=== PATIENT | male | born 2005 | race Two or more races ===

== ENCOUNTER 2024-11-30 09:59 | Emergency (ER) | payer MEDICAID, SELFPAY ==
[2024-11-30 10:00] VITALS: BMI 21.8
--- NOTE | 2024-11-30 10:57 | PC.NURSE ---
CALL PT FROM LOBBY AND OUTSIDE NO ANSWER
--- NOTE | 2024-11-30 11:19 | PC.NURSE ---
called from lobby and no answer
--- NOTE | 2024-11-30 11:33 | PC.NURSE ---
called from lobby and no answer
== END 2024-11-30 11:33 | disposition left against medical advice (07) ==
LOC: SERX 11:35
PROVIDERS: Emergency Provider Emergency Medicine
DX: Z53.21 Procedure and treatment not carried out due to patient leaving prior to being seen by health care provider (principal)

== ENCOUNTER 2025-01-25 05:42 | Emergency (ER) | payer MEDICAID, SELFPAY ==
[2025-01-25] VITALS (16 sets, daily range): BP systolic 116–159; BP diastolic 72–97; PULSE 69–101; RESP 13–23; TEMP 36.6–37; O2SAT 96–100; BMI 20.5; BMI 19.9
--- NOTE | 2025-01-25 05:53 | PD.EDADULT ---
ED General RME/HPI General Chief complaint: Seizure Stated complaint: SEIZURE Time Seen by Provider: 01/25/25 05:53 Arrival date/time: 01/25/25 05:42 RME / HPI RME / HPI narrative: Patient is a 19 years old male with PMH of kidney stones with multiple ED visits, CKD, seizure disorder, asthma presented to the ED due to abdominal and B/L flank pain, hematuria and episode of seizures. He reports he developed hematuria 1 week ago and it was episodic. Today around 0400 he developed severe abdominal pain and his urine completely turned into blood. He reports because of pain he developed seizure episode around 0500 and EMS was called. He reports he has seizure disorder diagnosed when he was 6 years old and was previously on medications but discontinued them due to side effects. He had episode of seizures 1 week ago last time. He denies any drug use, alcohol use or tobacco smoking. He denies fever, chills, chest pain, SOB, nausea, vomiting, diarrhea. He reports he has seizure episodes usually when he has severe pain. Mother arrived later reports he stopped seizure medications 3 years ago. She reports he has absent seizures and tonic-clonic seizures when his right side of the body starts shaking and gaze deviates to the left. Today he first started staring at one point and became unresponsive and then started shaking. She reports he is not followed by nephrology, urology or neurology. No family history is available as the patient is adopted. During ED stay patient was found to have low 6 mm calculus in left urether and was set for discharge on PO Tamsulosin and immediately prior to it he said he will kill himself by stabbing himself once he reach his home. Psychiatric hold was ordered. Related Data Home Medications ?Medication ?Instructions ?Recorded ?Confirmed albuterol sulfate 2.5 mg/3 mL 2.5 mg HHN [id number] #0 ea 12/22/13 (0.083 %) solution for nebulization beclomethasone dipropionate 40 2 puff inhalation BID ##0 12/22/13 mcg/actuation aerosol inhaler (Qvar) calcium carbonate (Oyster Shell 1 tab PO DAILY ##0 12/22/13 Calcium) dexmethylphenidate 20 mg 20 mg PO DAILY ##0 12/22/13 capsule,extended release [id number] (Focalin XR) epinephrine 0.3 mg/0.3 mL 0.3 mg IM PRN PRN ANAPHYLAXIS #0 ea 12/22/13 injection, auto-injector (EpiPen 2-Lj) esomeprazole magnesium 40 mg 40 mg PO QDAY ##0 12/22/13 capsule,delayed release (Nexium) Previous Rx's ?Medication ?Instructions ?Recorded ciprofloxacin HCl 500 mg tablet 500 mg PO BID #14 tabs 09/13/24 (Cipro) ibuprofen 800 mg tablet 800 mg PO Q8H PRN pain #30 tabs 09/13/24 tamsulosin 0.4 mg capsule 0.4 mg PO QDAY 7 days #7 caps 01/25/25 Allergies Allergy/AdvReac Type Severity Reaction Status Date / Time adhesive Allergy Intermediate Rash Verified 11/30/24 10:02 amphetamine Allergy Intermediate SWELLS, Verified 11/30/24 10:02 RASH dextroamphetamine Allergy Intermediate SWELLS, Verified 11/30/24 10:02 RASH Penicillins Allergy Mild RASH Verified 11/30/24 10:02 ceftriaxone Allergy Unknown Hives Verified 11/30/24 10:02 corn AdvReac Mild NAUSEA Verified 11/30/24 10:02 Review of Systems Review of Systems Systems Reviewed: All systems reviewed, normal except as documented ED Exam Narrative Physical exam: Gen: Well-developed and well-nourished male. HEENT: NCAT, PERRLA, EOMI, MMM, anicteric conjunctivae. CVS: normal S1 and S2. RRR. No M/R/G. Resp: CTA B/L. No rhonchi, rales, crackles or wheezing. Abd: soft, tender throughout, non-distended. Volunteer guarding present. BS+ in all 4 quadrants. : CVA tenderness B/L, suprapubic tenderness. MSK: Good ROM in BUE & BLE. No edema or rash. Neuro: CN II-XII grossly intact. Strength 5/5 in BUE & BLE. Alert and oriented x3. Psych: appears in distress due to pain. Course Course Course Narrative: 0600: CT showed early staghorn left renal calculi, mild left hydronephrosis secondary to 6 mm, 2 mm distal left ureteral calculi, 4 cm bladder calculus, mild left hydronephrosis secondary to 6 mm 2 mm distal left ureteral calculi, significant thickening of the urinary bladder wall with 4 cm bladder calculus. 0830: patient was set for discharge on PO Tamsulosin and immediately prior to it he said he will kill himself by stabbing himself once he reach his home. Psychiatric hold was ordered. social worker health services and crisis team are on board. 1200: evaluated by crisi team, patient put on 5150 psychiatric hold. Quality Measures none Orders Category Date Time Status 1799 Psychiatric Hold NOW Care 01/25/25 08:45 Ordered Bedside COVID-19 Antigen Test NOW Care 01/25/25 05:48 Active Bedside Influenza A&B Antigen Test NOW Care 01/25/25 05:48 Completed Continuous Bladder Irrigation QSHIFT Care 01/25/25 12:31 Active EKG (ED ONLY) *Do not use* NOW Care 01/25/25 05:50 Completed Saline [Insert IV] NOW Care 01/25/25 05:48 Active Urinary Catheter QS Care 01/25/25 12:[address] abdomen pelvis wo con Stat Exams 01/25/25 06:[address] head/brain wo con Stat Exams 01/25/25 06:11 Completed EKG (ED Only) Stat Exams 01/25/25 05:50 Ordered Alcohol, Blood Medical Stat Lab 01/25/25 05:55 Completed CBC Stat Lab 01/25/25 05:55 Completed CMP [Comprehensive Metabolic Panel] Stat Lab 01/25/25 05:55 Completed Drug Screen,Urine Stat Lab 01/25/25 07:37 Completed Lactate (Lactic Acid) Stat Lab 01/25/25 06:48 Completed Magnesium Stat Lab 01/25/25 05:55 Completed TSH [Thyroid Stimulating Hormone] Stat Lab 01/25/25 05:55 Completed Troponin I Stat Lab 01/25/25 05:55 Completed UA, C/S IF [Urinalysis, C/S if Indicated] Stat Lab 01/25/25 07:37 Completed Urine Culture Stat Lab 01/25/25 07:37 Received DiphenhydrAMINE INJ [Benadryl Inj] Med 01/25/25 13:22 Discontinued 25 mg IV X1 ONE Haloperidol Lactate [Haldol Inj] Med 01/25/25 13:19 Discontinued 2.5 mg IV X1 ONE Haloperidol Lactate [Haldol Inj] Med 01/25/25 13:21 Discontinued 5 mg IV X1 ONE Ketorolac Inj [Toradol Inj] Med 01/25/25 07:46 Discontinued 15 mg IVP X1 ONE Ketorolac Inj [Toradol Inj] Med 01/25/25 12:13 Discontinued 15 mg IVP X1 ONE Ketorolac Inj [Toradol Inj] Med 01/25/25 15:15 Discontinued 15 mg IVP X1 ONE LORazepam [Ativan Inj] Med 01/25/25 05:48 Discontinued 2 mg IVP X1 ONE LORazepam [Ativan Inj] Med 01/25/25 13:21 Discontinued 2 mg IVP X1 ONE Lidocaine Jelly 2% Urojet [Xylocaine Jelly 2% Urojet] Med 01/25/25 14:20 Discontinued See Dose Instructions TOP X1 ONE Morphine Inj Med 01/25/25 06:09 Discontinued 2 mg IVP X1 ONE Morphine Inj Med 01/25/25 17:46 Once 2 mg IVP X1 ONE Nicotine Patch [Nicoderm Patch] Med 01/25/25 12:36 Discontinued 14 mg TOP X1 ONE Ondansetron Inj [Zofran Inj] Med 01/25/25 05:48 Discontinued 4 mg IV X1 ONE Sodium Chloride 0.9% 1000 ml [Ns] 1,000 ml Med 01/25/25 05:48 Discontinued IV 999 mls/hr Sodium Chloride 0.9% 500 ml [Ns] 500 ml Med 01/25/25 12:13 Discontinued IV 999 mls/hr Tamsulosin HCl [Flomax] Med 01/25/25 12:14 Discontinued 0.4 mg PO X1 ONE Vital Signs Vital signs: Vital Signs Temperature 98.2 F 01/25/25 05:48 Pulse Rate 93 01/25/25 05:48 Respiratory Rate 20 01/25/25 05:48 Blood Pressure 149/84 H 01/25/25 05:48 Pulse Oximetry (%) 100 01/25/25 05:48 Oxygen Delivery Method Nasal Cannula 01/25/25 05:48 Oxygen Flow Rate 1 01/25/25 05:48 Procedures -ED EKG Interpretation #1: Date of EK01/25/25 Time of EK:55 Rate: 81 Interpretation: Reviewed by me EKG Impression: Normal sinus rhythm MDM Patient data External records reviewed:: [facility] previous records and EMS form Clinical information provided by:: patient Social determinants that could affect healthcare access:: none Patient has the following chronic illnesses:: kidney stones, CKD, seizure disorder, asthma How is presenting disease/condition affected by chronic disease/condition?: caused by Evaluation data The following diagnostics were reviewed and interpreted by me:: lab results, radiology exam(s) and EKG tracing(s) Lab and/or radiology exams considered but not ordered:: CT urography Interpretation Summary: Early staghorn left renal calculi. Mild left hydronephrosis secondary to 6 mm, 2 mm distal left ureteral calculi. 4 cm bladder calculus. Mild left hydronephrosis secondary to 6 mm 2 mm distal left ureteral calculi. Significant thickening of the urinary bladder wall with 4 cm bladder calculus. Influenza bedside positive, likely false positive as the patient is asymptomatic. Medications Medications considered but not ordered:: na Medication administrations:: Medication Administration History Discontinued Medications Diphenhydramine HCl (Diphenhydramine Inj 50 Mg/Ml Vial) 25 mg IV X1 ONE Stop: 01/25/25 13:23 Last Admin: 01/25/25 13:34 Dose: 25 mg Documented By: BD Haloperidol Lactate (Haloperidol Lact Inj 5 Mg/Ml Vial) 2.5 mg IV X1 ONE Stop: 01/25/25 13:20 Last Admin: 01/25/25 13:37 Dose: Not Given Documented By: BD Non-Admin Reason: Cancelled by Provider Haloperidol Lactate (Haloperidol Lact Inj 5 Mg/Ml Vial) 5 mg IV X1 ONE Stop: 01/25/25 13:22 Last Admin: 01/25/25 13:37 Dose: Not Given Documented By: BD Non-Admin Reason: Cancelled by Provider Sodium Chloride (Ns) 1,000 mls @ 999 mls/hr IV .Q1H1M ONE Stop: 01/25/25 06:48 Last Infusion: 01/25/25 07:24 Dose: Infused Documented By: Admin: 01/25/25 06:04 Dose: 999 mls/hr Documented By: CB Sodium Chloride (Ns) 500 mls @ 999 mls/hr IV .Q31M ONE Stop: 01/25/25 12:43 Last Infusion: 01/25/25 13:36 Dose: Infused Documented By: Admin: 01/25/25 12:25 Dose: 999 mls/hr Documented By: BD Ketorolac Tromethamine (Ketorolac Inj 30 Mg/Ml Vial) 15 mg IVP X1 ONE Stop: 01/25/25 07:47 Last Admin: 01/25/25 09:15 Dose: 15 mg Documented By: BD Ketorolac Tromethamine (Ketorolac Inj 30 Mg/Ml Vial) 15 mg IVP X1 ONE Stop: 01/25/25 12:14 Last Admin: 01/25/25 12:22 Dose: 15 mg Documented By: BD Ketorolac Tromethamine (Ketorolac Inj 30 Mg/Ml Vial) 15 mg IVP X1 ONE Stop: 01/25/25 15:16 Last Admin: 01/25/25 15:19 Dose: 15 mg Documented By: BD Lidocaine HCl (Lidocaine Jelly 2% (Urojet) 10 Ml Tube) 0 ml TOP X1 ONE Stop: 01/25/25 14:21 Last Admin: 01/25/25 14:25 Dose: 10 ml Documented By: BD Lorazepam (Lorazepam 2 Mg/Ml Vial) 2 mg IVP X1 ONE Stop: 01/25/25 05:49 Last Admin: 01/25/25 06:04 Dose: 2 mg Documented By: EMMA Lorazepam (Lorazepam 2 Mg/Ml Vial) 2 mg IVP X1 ONE Stop: 01/25/25 13:22 Last Admin: 01/25/25 13:32 Dose: 2 mg Documented By: BD Morphine Sulfate (Morphine Sulf Inj 10 Mg/Ml Vial) 2 mg IVP X1 ONE Stop: 01/25/25 06:10 Last Admin: 01/25/25 07:54 Dose: 2 mg Documented By: BD Nicotine (Nicotine Patch 14 Mg/24 Hr Patch.Td24) 14 mg TOP X1 ONE Stop: 01/25/25 12:37 Last Admin: 01/25/25 13:01 Dose: 14 mg Documented By: BD Ondansetron HCl (Ondansetron Inj 2 Mg/Ml Inj 2 Ml) 4 mg IV X1 ONE; Protocol Stop: 01/25/25 05:49 Last Admin: 01/25/25 06:03 Dose: 4 mg Documented By: EMMA Tamsulosin HCl (Tamsulosin Hcl 0.4 Mg Capsule) 0.4 mg PO X1 ONE Stop: 01/25/25 12:15 Last Admin: 01/25/25 12:20 Dose: 0.4 mg Documented By: BD as above Consultations Consultation(s) initiated? (list below): No Diagnosis Differential Diagnosis ED Complaint MDM: renal calculi, uretheral stone, nephrolythiasis, cystitis, pyelonephritis Most likely diagnosis given after review of the tests above:: uretheral stone Admission Indicated Admission indicated?: indicated Explain why admission is indicated or not indicated:: Patient will need psychiatric services, which are not available at [facility]. Transfer initiated. Admission Request Was there a request for admission?: No Disposition Plan Disposition Plan: other (specify) (passed to nuight shift.) Medical Decision Making MDM Narrative MDM Narrative: 19-year-old male with a history of recurrent kidney stones, chronic kidney disease (CKD), seizure disorder, and asthma presenting with abdominal and bilateral flank pain, hematuria, and seizure episode. His symptoms are associated with pain-triggered seizures. Discontinued seizure medications due to side effects 3 years ago; no current specialty follow-up. CT scan identified: Early staghorn left renal calculi. Mild left hydronephrosis secondary to distal ureteral calculi (6 mm and 2 mm). Significant bladder wall thickening with a 4 cm bladder calculus. Laboratory Results: Influenza bedside test positive, likely a false positive due to absence of symptoms. Mild anemia, chronic.The patient's symptoms, including flank pain and hematuria, are attributed to manageable conditions such as mild left hydronephrosis and distal urethral calculi. While these require attention, they are not life-threatening and can be treated on an outpatient basis. Immediately prior to discharge patient reported suicidal intentions, which necessitated holding them for further evaluation and ensuring their safety. Crisis team on board. Differential Diagnosis Differential Diagnosis: renal calculi, uretheral stone, nephrolythiasis, cystitis, pyelonephritis Lab Data 01/25/25 05:55 01/25/25 05:55 Labs: Lab Results 01/25/25 01/25/25 01/25/25 Range/Units 05:55 06:48 07:37 WBC 7.0 (3.8-10.6) Thou/mm3 RBC 4.52 (4.50-5.90) Miln/mm3 Hgb 13.0 L (13.5-16.0) g/dL Hct 36.0 L (41.0-53.0) % MCV 80 (80-100) fL MCH 28.8 (25.0-35.0) pg MCHC 36.1 (31.0-37.0) g/dl RDW Std Deviation 35.2 (35.1-43.9) fL Plt Count 278 (140-440) Thou/mm3 Neut % (Auto) 56 (37-80) % Lymph % (Auto) 35 (10-50) % Perry % (Auto) 5 (0-12) % Eos % (Auto) 3 (0-10) % Baso % (Auto) 1 (0-2.5) % Neut # (Auto) 3.9 (1.8-7.7) Thou/mm3 Lymph # (Auto) 2.4 (1.0-4.8) Thou/mm3 Perry # (Auto) 0.4 (0.0-0.8) Thou/mm3 Eos # (Auto) 0.2 (0.0-0.5) Thou/mm3 Baso # (Auto) 0.1 (0.0-0.2) Thou/mm3 Immature Gran # (Auto) 0.02 H (0.00-0.00) Thou/mm3 Absolute Nucleated RBC 0.00 (0.00-0.00) Thou/mm3 Immature Gran % 0 (0-0) % Nucleated RBC % 0 (0) /100 WBC Sodium 140 (136-145) mMol/L Potassium 4.6 (3.4-5.1) mMol/L Chloride 102 (98-107) mMol/L Carbon Dioxide 25.3 (20.0-31.0) mMol/L Anion Gap 13 (7-16) BUN 23 (9-23) mg/dL Creatinine 1.7 H (0.6-1.3) mg/dL Estim Creat Clear Calc 59.5 L (>60) mL/min eGFR 58 L (60 - ) See Note BUN/Creatinine Ratio 14 (12-20) Ratio Glucose 90 (74-106) mg/dL Calculated Osmolality 283 (275-295) Lactic Acid 0.8 (0.4-2.0) mMol/L Calcium 10.5 (8.3-10.6) mg/dL Corrected Calcium 10.5 H (8.5-10.1) mg/dL Magnesium 2.2 (1.6-2.6) mg/dL Total Bilirubin 1.2 (0.3-1.2) mg/dL AST 26 (0-34) U/L ALT 11 (10-49) U/L Alkaline Phosphatase 69 (46-116) U/L Troponin I < 0.002 (0.0-0.045) ng/mL Total Protein 8.0 (5.7-8.2) gm/dL Albumin 4.9 (3.5-5.0) gm/dL Globulin 3.1 (2.3-3.5) gm/dL Albumin/Globulin Ratio 1.6 (1.2-2.2) TSH 1.51 (0.55-4.78) uIU/mL Ur Collection Type Clean Catch Urine Color Drk Red A (Lt Yel-Yel) Urine Clarity Bloody A (Clear/Hazy) Urine pH 6.5 (5.0-7.0) Ur Specific [place] 1.024 (1.001-1.035) Urine Protein 3+ A (Neg - Trace) Urine Glucose (UA) Negative (Negative) Urine Ketones 1+ A (Negative) Urine Blood 3+ A (Negative) Urine Nitrite Negative (Negative) Urine Bilirubin Negative (Negative) Urine Urobilinogen (Auto) Negative (0.0-1.0) mg/dL Ur Leukocyte Esterase Positive (Negative) Urine RBC [id number] H (0-3) /hpf Urine WBC 665 H (0-5) /hpf Ur Squamous Epith Cells 0 (0-5) /hpf Urine Bacteria None (None) Ur Culture Indicated? Yes Urine Opiates Screen Negative (Negative) Urine Fentanyl Screen Negative (Negative) Ur Barbiturates Screen Negative (Negative) U Amphetamin/Meth Scrn Negative (Negative) U Benzodiazepines Scrn Negative (Negative) U Cocaine Metab Screen Negative (Negative) U Marijuana (THC) Screen Positive A (Negative) Ethyl Alcohol < 3.0 (0-10.0) mg/dL Discharge Plan Plan Patient Disposition: [facility] Patient condition on transfer: Stable Prescriptions/Referrals Prescriptions/Med Rec: New tamsulosin 0.4 mg capsule 0.4 mg PO QDAY 7 Days Qty: 7 0RF No Action dexmethylphenidate [Focalin XR] 20 MG capsule,ER biphasic 50-50 20 mg PO DAILY Qty: 0 esomeprazole magnesium [Nexium] 40 MG capsule,delayed release(DR/EC) 40 mg PO QDAY Qty: 0 beclomethasone dipropionate [Qvar] 100 PUFF/7.3 GM aerosol 2 puff Inhalation BID Qty: 0 albuterol sulfate 2.5 MG/3 ML solution for nebulization 2.5 mg HHN [id number] Qty: 0 calcium carbonate [Oyster Shell Calcium] 1 TAB tablet 1 tab PO DAILY Qty: 0 epinephrine [EpiPen 2-Lj] 0.3 MG/0.3 ML auto-injector 0.3 mg IM PRN PRN (Reason: ANAPHYLAXIS) Qty: 0 ciprofloxacin HCl [Cipro] 500 mg tablet 500 mg PO BID Qty: 14 0RF ibuprofen 800 mg tablet 800 mg PO Q8H PRN (Reason: pain) Qty: 30 0RF Referrals: Alex Johnson MD [Primary Care Provider] - In 1 week Alex Yuan MD [Physician] - In 1 week Zeus Lama MD [Physician] - In 1 week Problem List Clinical Impression: Urethral colic due to calculus Patient/Caregiver Discharge Instructions Education Materials: Hematuria: Possible Causes, Anatomy of the Male Urinary Tract Additional Instructions: Continue home medications as prescribed. Start taking tamsulosin 1 tab daily for 7 days. Follow up with PCP within 1 week. Establish care with urology, nephrology and neurology. Return to the ED if symptoms recur or worsen. Print Language: Libyan Stand Alone Forms: Nathalie Award Info., Patient Portal Info Letter
--- NOTE | 2025-01-25 06:01 | XR_ITS ---
Examination: CT abdomen and pelvis without contrast. Coronal 3-D reconstructions. Sagittal 2-D reconstructions. Date and time of exam:January 25, 2025 at 0629 hours INDICATIONS: Abdominal pain and nausea today CTDI: vol (mGy): 5.74 DLP: (mGycm): 315 Technique: Axial images of the abdomen have been obtained, 3 mm slice thickness Intravenous contrast material has not been administered. Low dose protocols were performed. One or more of the following dose reduction techniques were used; automated exposure control, adjustment of the mA and/or KV according to patient size, use of iterative reconstruction technique. Findings: Calcified granuloma left lower lobe No focal liver or splenic lesions. Absent gallbladder Poorly defined early staghorn calculi in the mid and lower pole left renal calyces Mild left hydronephrosis secondary to 6 mm 2 mm distal left ureteral calculi Aorta normal size No bowel obstruction Normal appendix Significant thickening of the urinary bladder wall with 4 cm bladder calculus The osseous structures are intact IMPRESSION: Early staghorn left renal calculi Mild left hydronephrosis secondary to 6 mm, 2 mm distal left ureteral calculi 4 cm bladder calculus
[2025-01-25] MEDS: ONDANSETRON INJ 2 MG/ML INJ 2 ML 4 MG IV (06:03)
[2025-01-25] MEDS: LORazepam 2 MG/ML VIAL IVP ×3 (06:04→18:30)
[2025-01-25] MEDS: SODIUM CHLORIDE 0.9% 1000 ML 1,000 ML 999 ML IV ×2 (06:04→18:28)
--- NOTE | 2025-01-25 06:11 | XR_ITS ---
Examination: CT brain head without contrast. 2-D sagittal coronal reconstructions Date and time of exam:January 25, 2025 0629 hours INDICATIONS: Head pain 5 months CTDI: vol (mGy):48.2 DLP: (mGycm):950 Technique: Multiple CT axial sections of the brain have been obtained, 5 mm slice thickness. Contrast has not been administered. 2-D sagittal, coronal reconstructions have been obtained Low dose protocols were performed. One or more of the following dose reduction techniques were used; automated exposure control, adjustment of the mA and/or KV according to patient size, use of iterative reconstruction technique. Findings: No significant ventricular enlargement. Intra-axial or extra-axial hemorrhage density is not seen. No mass effect or midline shift Basal cisterns are not remarkable. Fourth ventricle is midline. Cranial vault intact. Impression: Negative for acute hemorrhage, mass effect or midline shift Advise clinical correlation and follow up accordingly
[2025-01-25 06:31] LABS: Basophils # (Auto) 0.1 Thou/mm3 (0.0-0.2); Basophils % (Auto) 1 % (0-2.5); Eosinophils # (Auto) 0.2 Thou/mm3 (0.0-0.5); Eosinophils % (Auto) 3 % (0-10); Immature Granulocytes % (Auto) 0 % (0-0); Immature Granulocytes Auto 0.02 Thou/mm3 (0.00-0.00); Lymphocytes # (Auto) 2.4 Thou/mm3 (1.0-4.8); Lymphocytes % (Auto) 35 % (10-50); Mean Corpuscular HGB Conc 36.1 g/dl (31.0-37.0); Mean Corpuscular Hemoglobin 28.8 pg (25.0-35.0); Mean Corpuscular Volume 80 fL (80-100); Monocytes # (Auto) 0.4 Thou/mm3 (0.0-0.8); Monocytes % (Auto) 5 % (0-12); Neutrophils # (Auto) 3.9 Thou/mm3 (1.8-7.7); Neutrophils % (Auto) 56 % (37-80); Nucleated Red Blood Cell % 0 /100 WBC (0); Platelet Count 278 Thou/mm3 (140-440); RDW Standard Deviation 35.2 fL (35.1-43.9); Red Blood Count 4.52 Miln/mm3 (4.50-5.90)
[2025-01-25 06:47] LABS: Alanine Aminotransferase 11 U/L (10-49); Albumin, Serum 4.9 gm/dL (3.5-5.0); Albumin/Globulin Ratio 1.6 (1.2-2.2); Alkaline Phosphatase 69 U/L (46-116); Anion Gap 13 (7-16); Aspartate Amino Transferase 26 U/L (0-34); BUN/Creatinine Ratio 14 Ratio (12-20); Bilirubin,Total 1.2 mg/dL (0.3-1.2); Blood Urea Nitrogen 23 mg/dL (9-23); Calcium 10.5 mg/dL (8.3-10.6); Calcium (Corrected) 10.5 mg/dL (8.5-10.1); Carbon Dioxide 25.3 mMol/L (20.0-31.0); Chloride 102 mMol/L (98-107); Creatinine (Component) 1.7 mg/dL (0.6-1.3); Estimated Creatinine Clearance 59.5 mL/min (>60); Globulin 3.1 gm/dL (2.3-3.5); Glucose 90 mg/dL (74-106); Magnesium 2.2 mg/dL (1.6-2.6); Osmolality,Calculated 283 (275-295); Potassium 4.6 mMol/L (3.4-5.1); Sodium 140 mMol/L (136-145); Thyroid Stimulating Hormone 1.51 uIU/mL (0.55-4.78); Troponin I < 0.002 ng/mL (0.0-0.045); eGFR 58 See Note
[2025-01-25 06:51] LABS: Alcohol, Blood Medical < 3.0 mg/dL (0-10.0)
[2025-01-25 06:55] LABS: Lactate (Lactic Acid) 0.8 mMol/L (0.4-2.0)
--- NOTE | 2025-01-25 07:52 | PC.NURSE ---
in and put not done pt used urinal
[2025-01-25] MEDS: MORPHINE SULF INJ 10 MG/ML VIAL 2 MG IVP ×2 (07:54→17:53)
[2025-01-25 08:11] LABS: Collection Type, Urine Clean Catch; Squamous Epithelial Cell,Urine 0 /hpf (0-5)
[2025-01-25 08:30] LABS: Bilirubin,Urine Negative (Negative); Blood,Urine 3+ (Negative); Glucose, Urine Negative (Negative); Ketones,Urine 1+ (Negative); Leukocyte Esterase,Urine Positive (Negative); Nitrite,Urine Negative (Negative); PH,Urine 6.5 (5.0-7.0); Protein,Urine 3+ (Neg - Trace); RBC,Urine 192221 /hpf (0-3); Specific Gravity,Urine 1.024 (1.001-1.035); Urobilinogen,Urine Negative mg/dL (0.0-1.0); WBC,Urine 665 /hpf (0-5)
[2025-01-25 08:31] LABS: Clarity,Urine Bloody (Clear/Hazy); Color,Urine Drk Red (Lt Yel-Yel); Culture Indicated,Urine Yes
--- NOTE | 2025-01-25 08:35 | PC.NURSE ---
walked by room pt was crying guardian was crying stated that she is afraid that he will hurt himself because he is tired of dealing with the pain and being at dr since he was young i asked pt if he has thoughts of harming himself he stated yes, he wants it to stop he is tired and dont want to continue
[2025-01-25 08:36] LABS: Amphetamine/Methamp Scrn,U Negative (Negative); Barbiturate Screen,Urine Negative (Negative); Benzodiazepines Screen,Urine Negative (Negative); Benzoylecgonine Screen, Ur Negative (Negative); Fentanyl Screen,Urine Negative (Negative); Opiate Screen,Urine Negative (Negative); THC Screen,Urine Positive (Negative)
--- NOTE | 2025-01-25 08:38 | PC.NURSE ---
notified dr. cohen of pt thoughts and advised i am not comfortable with discharge
--- NOTE | 2025-01-25 08:57 | PC.NURSE ---
notified director of social work about concerns og pt going home
[2025-01-25] MEDS: KETOROLAC INJ 30 MG/ML VIAL 15 MG IVP ×3 (09:15→15:19)
--- NOTE | 2025-01-25 11:07 | PC.NURSE ---
pt requesting medication for pain will notify provider, he is crying
--- NOTE | 2025-01-25 11:24 | PC.CC ---
Patient is a 19 year-old male who presents to the hospital for kidney Stones. A mental health evaluation was requested due to patient making suicidal statments. Bárbara YEPEZ made [id number] contact with patient. ASW introduced self, role, and reason for visit.?Patient appeared alert and oriented to self, location, and situation. At bedside was patient's mother, Lucia Bello whom patient provided consent to remain in the room during assessment. Patient reported he did not want to speak to this psychotherapist social worker and engage in assessment. Patient presented with a flat affect and disinhibited. ASW inquired if it was okay for psychotherapist social worker to speak to his mother outside of the room. The patient provided consent for SW to speak to mother outside of the room. Patient's mother reports patient has had medical issues caused by kidney stones for the past three years. Patient began to make suicidal statements saying he could no longer deal with the pain and would end his life. Per mother, patient reported to her that he has a plan to stab himself with intention. Patient's grandmother 2 months ago and patient has been having a difficulty grieving the loss. 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 Patient has a diagnosis of ODD, ADHD, Depression, and Anxiety but is not connected to outpatient mental health. However, the patient is a client of the [facility]. Patient's mother does not feel safe taking the patient home as she is concerned he can intentionally harm himself. ASW attempted to re-engage patient in assessment. Patient stated, I don't feel good it hurts too much. I don't want to be here anymore I am tired of fighting. ASW explored with patient if he had a plan to which he stated he would stab himself. Upon clinical consultation with [facility], Ruth Enrique patient will be placed on a 5150-hold for Danger to Self. ASW provided update of discharge plan to [facility] Facility to Dr. Vora, permastone installer Alicia, and NATIVIDAD Siu. ASW provided advisement to patient. ASW to send referral to [facility] Facilities via [employer].
--- NOTE | 2025-01-25 11:24 | PC.NURSE ---
pt was crying and hitting himself in the head mother was trying to redirect advised that he cant be harming himself that he needs to stop, pt stopped and began to cry he wants it to stop
--- NOTE | 2025-01-25 11:59 | PC.NURSE ---
pt put on 5150 hold by transition social worker
[2025-01-25] MEDS: TAMSULOSIN HCL 0.4 MG CAPSULE PO (12:20)
[2025-01-25] MEDS: SODIUM CHLORIDE 0.9% 500 ML 500 ML 999 ML IV (12:25)
--- NOTE | 2025-01-25 12:43 | PC.NURSE ---
CALLED PHARMACY FOR NICOTENE PATCH
[2025-01-25] MEDS: NICOTINE PATCH 14 MG/24 HR PATCH.TD24 TOP ×2 (13:01→22:28)
--- NOTE | 2025-01-25 13:03 | PC.NURSE ---
pt refused bladder irrigation and cath
[2025-01-25] MEDS: DiphenhydrAMINE INJ 50 MG/ML VIAL 25 MG IV (13:34)
--- NOTE | 2025-01-25 13:35 | PC.NURSE ---
pt very agitated and upset wanting to leave and pull out iv. I was able to speak with pt and have him calm done and relax. he is upset as he is tired of kidney issues and pain and wants it to stop.
--- NOTE | 2025-01-25 14:13 | PC.NURSE ---
MADE CONTACT WITH THIS PT TO LET HIM KNOW THAT THE WE NEED TO PLACED IN A FLETCHER CATHER, BUT PT REFUSED. DR. PRIETO MADE AWARE.
[2025-01-25] MEDS: LIDOCAINE JELLY 2% (Urojet) 10 ML TUBE TOP (14:25)
--- NOTE | 2025-01-25 16:34 | PC.NURSE ---
pt requesting pain meds
--- NOTE | 2025-01-25 16:56 | PC.NURSE ---
dr. cohen informed that pt still c/o pain
--- NOTE | 2025-01-25 17:40 | PC.NURSE ---
PT ON GURNEY ROCKING BACK AND FORTH AND CRYING. WAITING FOR PROVIDER TO ORDER PAIN MEDS. PT'S MOTHER WANTING TO KNOW HOE TO GET PT TRANSFERRED TO A HOSPITAL WITH UROLOGIST. EXPLAINED BECAUSE PT MADE SUICIDAL STATEMENT EARLIER. EXPLAINED THAT NO HOSPITAL IS GOING TO TAKE HIM FOR UROLOGY DUE TO THE SUICIDAL STATEMENTS, AND THAT NO PSYCH FACILITY WILL TAKE HIM WITH BLOODY URINE. INFORMED MOTHER THAT NURSE WILL TALK CHIDI RILEY
--- NOTE | 2025-01-25 18:20 | PC.NURSE ---
DR. WILLINGHAM INFORMED THAT PT C/O ANXIETY
--- NOTE | 2025-01-25 18:25 | PC.NURSE ---
PT FOUND CRYING AND TELLING MOM I WANT TO GO HOME. ASKED PT TO TAKE A DEEP BREATH AND TRY TO RELAX. EXPLAINED NURSE HERE TO GIVE MEDICATION TO HELP CALM PT. PT SAYING I'M SORRY, I'M SORRY, OVER AND OVER. PT STATES I'M TRYING TO KEEP CONTROL BUT ITS HARD. ASKED PT WHAT HE USES AT HOME FOR HIS ANXIETY AND PT STATES ALONSO, LOOKS AT HIS MOM AND SAYS I KNOW YOU DON'T WANT TO HEAR THAT. NURSE EXPLAINED TO PT AND MOM THAT THERE ARE A LOT OF PEOPLE WHO USE MARIJUANA FOR ANXIETY. PT STATE IT HELPS ME ALOT. WILL CONTINUE TO MONITOR
[2025-01-25] MEDS: DiphenhydrAMINE INJ 50 MG/ML VIAL IV ×2 (18:29→22:08)
--- NOTE | 2025-01-25 18:41 | PD.EDADDENDU ---
Emergency Room Addendum Addendum Narrative: I took over the care from Dr. Vora and resident(s) under his supervision at 6 PM on 01/26/2025, see previous notes for complete H&P and ED course. Patient presented with possible seizure and flank pain. I reviewed all diagnostic test results. Diagnoses include Ureter Stones, UTI, Influenza, Suicidal Ideation, Marijuana Use. During my watch, we had trouble with the patient being verbally abusive (and physically threatening) to his mom and to staff. When asked for medications for help, various medications didn't help, including Benadryl and Ativan. With Haldol 5 mg IV and 15 mg IV, significant improvement noted. At 6 AM on 01/26/2025, the care of the patient was transferred to Dr. Molina. Charli Bhatti MD
[2025-01-25] MEDS: HYDROcodone/APAP 5/325 TABLET 2 TAB PO (20:57)
[2025-01-25] MEDS: HALOPERIDOL LACT INJ 5 MG/ML VIAL 15 MG IM (21:45)
[2025-01-25] MEDS: HALOPERIDOL LACT INJ 5 MG/ML VIAL IV (22:03)
--- NOTE | 2025-01-25 22:12 | PC.NURSE ---
At opprox 2109, pts mother decided to go home. Pt had a tantrum, jumping up and down screaming mommy don't leave me! I don't want to be alone! over and over. Mother left. Pt continued to yell and scream, verbaly abusive to staff. pt was very aggressive, and threatening twards his mother and staff. meds ordered and security called for assistance.
[2025-01-26] VITALS (7 sets, daily range): BP systolic 126–152; BP diastolic 61–88; PULSE 58–87; RESP 16–18; TEMP 36.7–37.1; O2SAT 98–100
[2025-01-26] MEDS: cefTRIAXone/D5w 1gm IV premix 1 GM/50 ML BAG IV (05:55)
--- NOTE | 2025-01-26 05:56 | EDNOTE_ITS ---
Emergency Room Addendum <Marcia Bloom - Last Filed: 01/26/25 13:17> Addendum Narrative: 0600: Care assumed from Dr. Bhatti, the previous shift emergency physician. Past medical, surgical, social and family history reviewed. Vitals and home medications reviewed. I will assume the care of the patient at this time. Please refer to the emergency department record for history and examination from initial visit.? The patient was placed in ED observation care at 01/26/2025 at 0600 hours. The patient was placed in ED observation care because of undifferentiated decompensated behavioral health evaluation, no behavioral health bed available. The patients past medical history, social history, and family history were reviewed. The plan of care will include serial examinations. While in ED observation the patient will have access to water, food, and personal hygiene. If the patient takes home medication(s), they will be continued in ED observation. Physical exam by me shows patient under no acute distress at this time. Patient is a 19-year-old who came in over 24 hours ago who had a medical workup and found to have influenza positive possible seizure and flank pain who had a workup for both of those problems and found to have CT of the head which was no acute. CT of the abdomen which revealed: IMPRESSION: -Early staghorn left renal calculi -Mild left hydronephrosis secondary to 6 mm, 2 mm distal left ureteral calculi -4 cm bladder calculus Urine was collected which revealed a large amount of hematuria with some pyuria creatinine of 1.7 which is close to his recent baseline and noted to have a corrected calcium of 10.5 of uncertain significance but the CT also reveals a staghorn calculus in prolong hypercalcemia may be a contributing factor. Because of this we will get a continue hydrating the patient this morning. Evidently they were planning to discharge him earlier this morning but then became combative and agitated and had to sedate him as he was using foul words and rude to his family and staff. Currently patient sedated since that event. Will continue hydrating the patient this morning. He is 7099 held. Will get a parathormone level just because of the borderline hypercalcemia and the staghorn calculus. And reevaluate him later today. Because of the mild left hydronephrosis with a left ureteral calculi he will need a follow-up for this assuming he has capacity to be discharged after mental health evaluation. 1224: Mental health rescinded the hold. Social service came by and have cleared him from a mental health standpoint. As noted on his labs he presents with a CT scan with a kidney stone and early staghorn as printed above. He is alert awake urinated again the urine is nearly clear at this time. A second urine is sent off and presuming the hematuria was from the kidney stone which presumably has passed. Since he has no pain at this time. Mom reports to me they have doctors at [facility] in the neurology department who have been managing him. And she plans to follow-up with them and get referred to a urologist since there are no urologist here and she is actually fully aware of that. Patient to be discharged pending UA. <Ryan Molina MD - Last Filed: 01/26/25 14:11> Addendum Narrative: 0600: Care assumed from Dr. Bhatti, the previous shift emergency physician. Past medical, surgical, social and family history reviewed. Vitals and home medications reviewed. I will assume the care of the patient at this time. Please refer to the emergency department record for history and examination from initial visit.? The patient was placed in ED observation care at 01/26/2025 at 0600 hours. The patient was placed in ED observation care because of undifferentiated decompensated behavioral health evaluation, no behavioral health bed available. The patients past medical history, social history, and family history were reviewed. The plan of care will include serial examinations. While in ED observation the patient will have access to water, food, and personal hygiene. If the patient takes home medication(s), they will be continued in ED observation. Physical exam by me shows patient under no acute distress at this time. Patient is a 19-year-old who came in over 24 hours ago who had a medical workup and found to have influenza positive possible seizure and flank pain who had a workup for both of those problems and found to have CT of the head which was no acute. CT of the abdomen which revealed: IMPRESSION: -Early staghorn left renal calculi -Mild left hydronephrosis secondary to 6 mm, 2 mm distal left ureteral calculi -4 cm bladder calculus Urine was collected which revealed a large amount of hematuria with some pyuria creatinine of 1.7 which is close to his recent baseline and noted to have a corrected calcium of 10.5 of uncertain significance but the CT also reveals a staghorn calculus in prolong hypercalcemia may be a contributing factor. Because of this we will get a continue hydrating the patient this morning. Evidently they were planning to discharge him earlier this morning but then became combative and agitated and had to sedate him as he was using foul words and rude to his family and staff. Currently patient sedated since that event. Will continue hydrating the patient this morning. He is 7099 held. Will get a parathormone level just because of the borderline hypercalcemia and the staghorn calculus. And reevaluate him later today. Because of the mild left hydronephrosis with a left ureteral calculi he will need a follow-up for this assuming he has capacity to be discharged after mental health evaluation. 1224: Mental health rescinded the hold. Social service came by and have cleared him from a mental health standpoint. As noted on his labs he presents with a CT scan with a kidney stone and early staghorn as printed above. He is alert awake urinated again the urine is nearly clear at this time. A second urine is sent off and presuming the hematuria was from the kidney stone which presumably has passed. Since he has no pain at this time. Mom reports to me they have doctors at [facility] in the neurology department who have been managing him. And she plans to follow-up with them and get referred to a urologist since there are no urologist here and she is actually fully aware of that. Patient to be discharged pending UA. The follow-up UA reveals a mostly hematuria with 381 white cells and 9 white cells see no reason to treat for an infection at this time. Most likely the blood is secondary to the kidney stone which appears of passed clinically. Patient and mother are updated and will be discharged.
[2025-01-26 06:28] LABS: Basophils # (Auto) 0.1 Thou/mm3 (0.0-0.2); Basophils % (Auto) 1 % (0-2.5); Eosinophils # (Auto) 0.2 Thou/mm3 (0.0-0.5); Eosinophils % (Auto) 3 % (0-10); Hemoglobin 11.4 g/dL (13.5-16.0); Immature Granulocytes % (Auto) 0 % (0-0); Immature Granulocytes Auto 0.01 Thou/mm3 (0.00-0.00); Lymphocytes # (Auto) 2.6 Thou/mm3 (1.0-4.8); Lymphocytes % (Auto) 45 % (10-50); Mean Corpuscular HGB Conc 35.6 g/dl (31.0-37.0); Mean Corpuscular Hemoglobin 29.4 pg (25.0-35.0); Mean Corpuscular Volume 83 fL (80-100); Monocytes # (Auto) 0.4 Thou/mm3 (0.0-0.8); Monocytes % (Auto) 7 % (0-12); Neutrophils # (Auto) 2.6 Thou/mm3 (1.8-7.7); Neutrophils % (Auto) 44 % (37-80); Nucleated Red Blood Cell % 0 /100 WBC (0); Platelet Count 186 Thou/mm3 (140-440); RDW Standard Deviation 36.4 fL (35.1-43.9); Red Blood Count 3.88 Miln/mm3 (4.50-5.90); White Blood Count 5.8 Thou/mm3 (3.8-10.6)
--- NOTE | 2025-01-26 06:32 | PC.NURSE ---
Pt has been sleeping since meds given.
[2025-01-26 06:48] LABS: Anion Gap 7 (7-16); BUN/Creatinine Ratio 12 Ratio (12-20); Blood Urea Nitrogen 19 mg/dL (9-23); Calcium 9.4 mg/dL (8.3-10.6); Chloride 110 mMol/L (98-107); Creatinine (Component) 1.6 mg/dL (0.6-1.3); Estimated Creatinine Clearance 63.3 mL/min (>60); Glucose 80 mg/dL (74-106); Osmolality,Calculated 288 (275-295); Sodium 144 mMol/L (136-145); eGFR > 60 See Note
--- NOTE | 2025-01-26 07:35 | PC.NURSE ---
report received at 0710 anc care assumes. Pt currently sleeping and will assess pt when he wakes up
[2025-01-26] MEDS: SODIUM CHLORIDE 0.9% 1000 ML 1,000 ML 999 ML IV (08:46)
--- NOTE | 2025-01-26 09:09 | PC.NURSE ---
PT REMAINS SLEEPY AND NOT WANTING TO TALK YET. PT DOES TURN AND MOVE THEN GOES BACK TO SLEEP
--- NOTE | 2025-01-26 10:55 | PC.CC ---
[facility] [facility]-Declined due to medical conditions 1111 [facility] reports they do not have any adult male beds they will remain in the queue. [facility]-Declined at all facilities due to medical concerns. 1109 [facility] reports they do have one male bed. Resent packet. 110[facility]-They cannot accept him due to medical capabilities[facility] reports he is in queue the queue is long. 1055 [facility] at capacity for male beds.
--- NOTE | 2025-01-26 11:00 | PC.NURSE ---
PT WOKE TO VOID AND URINE CLEAR CHRISTOPHER AT THIS TIME. WILL INFORM MD. STILL TOO SLEEPY TO ANSWER QUESTIONS
--- NOTE | 2025-01-26 12:07 | PC.NURSE ---
dr. aguilar informed that pt now with clear urine
--- NOTE | 2025-01-26 12:29 | PC.CC ---
Patient and mother, Lucia Bello are requesting a re-evaluation. ASWBárbara informed patient that ASW we need to obtain permission from ARMED SECURITY PROFESSIONAL, Ruth Enrique. ARMED SECURITY PROFESSIONAL provided consent for ASW to complete re-eval. Patient presented as alert and oriented to self, location, and situation. Patient made appropriate eye contact during assessment and mood was euthymic throughout assessment. Patient is reporting that he was making suicidal statements yesterday because he was in so much pain from the kidney stones. Patient is currently denying suicidal and homicidal ideations, and visual and auditory hallucinations. Patient continues to deny past suicide attempts and previous 5150-holds. Patient would like ASW to safety plan with his mother and mother is in agreement to safety planning. Mother reports she is willing to remain with the patient for the next 72 hours, and there are no firearms in the home. All medications and sharps are already locked and secure. Patient is in agreement with safety plan and referral to outpatient mental health services. ASW consulted with ARMED SECURITY PROFESSIONAL, Ruth Ralph and patient's 5150-hold will be rescinded as patient no longer meets criteria. ASW made referral to outpatient mental health services at [facility]. ASW provided patient with [facility] Community Resource Guide and Warm Line and Crisis Line. ASW provided update of 5150-hold being rescinded to Dr. Molina, claims support specialist Kathy, and NATIVIDAD Rogers.
--- NOTE | 2025-01-26 12:47 | PC.NURSE ---
per social service assistant 5150 hold is rescinded
[2025-01-26 13:14] LABS: Collection Type, Urine Clean Catch
--- NOTE | 2025-01-26 13:20 | PC.NURSE ---
DR. GAY WAITING ON REPEAT URINE BEFORE PT IS TO BE DISCHARGED
[2025-01-26 13:53] LABS: Bilirubin,Urine Negative (Negative); Blood,Urine 3+ (Negative); Color,Urine Lt-Yellow (Lt Yel-Yel); Culture Indicated,Urine Not Indicated; Glucose, Urine Negative (Negative); Hyaline Casts,Urine < 1 /hpf (0-1); Ketones,Urine 1+ (Negative); Leukocyte Esterase,Urine Positive (Negative); Nitrite,Urine Negative (Negative); Protein,Urine 1+ (Neg - Trace); RBC,Urine 381 /hpf (0-3); Specific Gravity,Urine 1.018 (1.001-1.035); Squamous Epithelial Cell,Urine 1 /hpf (0-5); Urobilinogen,Urine Negative mg/dL (0.0-1.0); WBC,Urine 9 /hpf (0-5)
[2025-01-26 14:08] LABS: Clarity,Urine Hazy (Clear/Hazy)
== END 2025-01-26 14:30 | disposition home or self-care (01) ==
PROVIDERS: Emergency Medicine; Student in an Organized Health Care Education/Training Program; Emergency Provider Emergency Medicine; PCP Family Medicine
DX: N21.1 Calculus in urethra (principal); N21.0 Calculus in bladder; J45.909 Unspecified asthma, uncomplicated; N18.9 Chronic kidney disease, unspecified; R56.9 Unspecified convulsions; R45.851 Suicidal ideations; N13.6 Pyonephrosis
CPT/HCPCS: 51702; 36415; 70450; 74176; 80048; 80053; 80307; 80320; 81001; 83605; 83735; 83970; 84443; 84484; 85025; 87086; 87400; 87811; 90839; 96127; 96361; 96372; 96374; 96375; 96376; 99284; J0696; J1200; J1630; J1885; J2060; J2270; J2405; J7030; J7040; A9270; G0480

== ENCOUNTER 2025-03-15 13:15 | Emergency (ER) | payer MEDICAID, SELFPAY ==
[2025-03-15 13:27] VITALS: BP 122/78; PULSE 77; RESP 18; TEMP 36.6; O2SAT 97; BMI 19.9
--- NOTE | 2025-03-15 13:41 | PD.EDRME ---
Rapid Medical Screening Exam RME Arrival date/time: 03/15/25 13:15 19-year-old male presents emergency department for complaints of flank pain patient reports history of the same patient reports a positive surgery on 03/[address] Christopher Chief Complaint: Back Pain/Injury Vital signs: Vital Signs Temperature 97.8 F 03/15/25 13:27 Pulse Rate 77 03/15/25 13:27 Respiratory Rate 18 03/15/25 13:27 Blood Pressure 122/78 03/15/25 13:27 Pulse Oximetry (%) 97 03/15/25 13:27 Oxygen Delivery Method Room Air 03/15/25 13:27
[2025-03-15 15:02] LABS: Collection Type, Urine Clean Catch
[2025-03-15 15:20] LABS: Bilirubin,Urine Negative (Negative); Blood,Urine 1+ (Negative); Clarity,Urine Turbid (Clear/Hazy); Color,Urine Yellow (Lt Yel-Yel); Culture Indicated,Urine Contaminated; Glucose, Urine Negative (Negative); Ketones,Urine Negative (Negative); Leukocyte Esterase,Urine Positive (Negative); Nitrite,Urine Negative (Negative); PH,Urine 7.5 (5.0-7.0); Protein,Urine 3+ (Neg - Trace); RBC,Urine 56 /hpf (0-3); Specific Gravity,Urine 1.027 (1.001-1.035); Squamous Epithelial Cell,Urine 14 /hpf (0-5); Transitional Epi Cells,Urine 3 /hpf (0-5); WBC,Urine 59 /hpf (0-5)
== END 2025-03-15 15:31 | disposition left against medical advice (07) ==
LOC: SERX 15:12
PROVIDERS: Nurse Practitioner Primary Care; Emergency Provider Family Medicine
DX: R10.9 Unspecified abdominal pain (principal); Z53.29 Procedure and treatment not carried out because of patient's decision for other reasons
CPT/HCPCS: 80053; 81001; 83690; 85025; 99281

== ENCOUNTER 2025-03-21 20:56 | Emergency (ER) | payer MEDICAID, SELFPAY ==
[2025-03-21 20:58] VITALS: BP 128/80; PULSE 80; RESP 18; TEMP 36.9; O2SAT 99
[2025-03-21 21:00] VITALS: BMI 20.2
--- NOTE | 2025-03-21 21:12 | EDNOTE_ITS ---
ED Seizures RME/HPI General Chief Complaint: Seizure Stated Complaint: SEIZURES Time Seen by Provider: 03/21/25 21:00 Arrival date/time: 03/21/25 20:56 RME / HPI RME / HPI Narrative: The patient is a 19-year-old male with significant past medical history of seizure disorder, massive urinary bladder stone and asthma presented to ED by EMS after having witnessed seizure. The history was obtained by interviewing EMS and patient. The seizure was witnessed by patient's mother, who grabbed him before falling on ground. The patient did not hit his head or any part of body to the ground. The patient admitted pain in lower abdomen 8/10 in intensity, and reported that he is having to strain during urination, dysuria, but denied any burning micturition. He denied any headache, lightheadedness, chest pain, SOB, any changes in bowel habit or leg swelling, fever or chills, nausea or vomiting. Related Data Home Medications ?Medication ?Instructions ?Recorded ?Confirmed albuterol sulfate 2.5 mg/3 mL 2.5 mg HHN [id number] #0 ea 12/22/13 (0.083 %) solution for nebulization beclomethasone dipropionate 40 2 puff inhalation BID # #0 12/22/13 mcg/actuation aerosol inhaler (Qvar) calcium carbonate (Oyster Shell 1 tab PO DAILY ##0 Calcium) dexmethylphenidate 20 mg 20 mg PO DAILY ##0 12/22/13 capsule,extended release [id number] (Focalin XR) epinephrine 0.3 mg/0.3 mL 0.3 mg IM PRN PRN ANAPHYLAXI S #0 ea 12/22/13 injection, auto-injector (EpiPen 2-Lj) esomeprazole magnesium 40 mg 40 mg PO QDAY ##0 4 capsule,delayed release (Nexium) Previous Rx's ?Medication ?Instructions ?Recorded ciprofloxacin HCl 500 mg tablet 500 mg PO BID #14 tabs 09/13/24 (Cipro) ibuprofen 800 mg tablet 800 mg PO Q8H PRN pain #30 t abs 09/13/24 acetaminophen 500 mg tablet 500 mg PO Q6H PRN pain #30 tabs 03/22/25 ciprofloxacin HCl 500 mg tablet 500 mg PO BID #13 tabs 03/22/25 levetiracetam 500 mg tablet 500 mg PO BID #60 tabs (Keppra) tamsulosin 0.4 mg capsule 0.8 mg (2 x 0.4 mg) PO QDAY #60 03/22/25 caps Allergies Allergy/AdvReac Type Severity Reaction Status Date / Time adhesive Allergy Intermediate Rash Verified 03/15/25 13:22 amphetamine Allergy Intermediate SWELLS, Verified 03/15/25 13:22 RASH dextroamphetamine Allergy Intermediate SWELLS, Verified 03/15/25 13:22 RASH Penicillins Allergy Mild RASH Verified 03/15/25 13:22 ceftriaxone Allergy Unknown Hives Verified 03/15/25 13:22 corn AdvReac Mild NAUSEA Verified 03/15/25 13:22 Review of Systems Review of Systems Systems Reviewed: All systems reviewed, normal except as documented ED Exam Narrative Physical exam: General: No acute distress, Alert and Oriented x 3 HEENT: Moist mucous membranes, oropharynx clear Neck: Supple, No masses, No JVD CVS: S1S2 Regular rate and rhythm, No murmurs, rubs or gallops Lungs: Clear to auscultation with no accessory use, no wheeze no rhonchi Abd: Soft, NT/ND, +BS, no organomegaly Ext: No edema, warm and well perfused Skin: No rash Psych: Appropriate mood and affect Course Quality Measures none Orders Category Date Time Status Seizure precautions NOW Care 03/21/25 21:11 Active Diet Regular Diet 03/21/25 Dinner Active CBC Stat Lab 03/21/25 21:51 Completed CK [Creatine Kinase] Stat Lab 03/21/25 21:51 Completed CMP [Comprehensive Metabolic Panel] Stat Lab 03/21/25 21:51 Completed Lactate (Lactic Acid) Stat Lab 03/21/25 21:51 Completed Magnesium Stat Lab 03/21/25 21:51 Completed Phosphorous Stat Lab 03/21/25 21:51 Completed UA, C/S IF [Urinalysis, C/S if Indicated] Stat Lab 03/21/25 23:45 Completed Urine Culture Stat Lab 03/21/25 23:45 Received Dextrose 50% Syr [D50w Syringe Abboject] Med 03/21/25 21:12 Discontinued 50 ml IV X1 ONE HYDROcodone*/APAP 7.5/325 [Sturgeon 7.5/325] Med 03/22/25 00:45 Discontinued 1 tab PO X1 ONE HYDROmorphone INJ [Dilaudid Inj] Med 03/21/25 23:33 Discontinued 0.5 mg IVP X1 ONE HYDROmorphone INJ [Dilaudid Inj] Med 03/21/25 21:07 Discontinued 1 mg IVP X1 ONE [facility] [Neutra-Phos Pkt] Med 03/21/25 23:34 Discontinued 1 packet PO X1 ONE [facility] [Neutra-Phos Pkt] Med 03/21/25 23:36 Discontinued 1 packet PO X1 ONE Tamsulosin HCl [Flomax] Med 03/21/25 21:18 Discontinued 0.4 mg PO X1 ONE levETIRAcetam INJ [Keppra Inj] Med 03/22/25 00:27 Discontinued 1,500 mg IVP X1 ONE Vital Signs Vital signs: Vital Signs Temperature 98.4 F 03/21/25 20:58 Pulse Rate 80 03/21/25 20:58 Respiratory Rate 18 03/21/25 20:58 Blood Pressure 128/80 03/21/25 20:58 Pulse Oximetry (%) 99 03/21/25 20:58 Oxygen Delivery Method Nasal Cannula 03/21/25 20:58 Oxygen Flow Rate 6 03/21/25 20:58 Seizure MDM Narrative MDM Narrative:: The patient is a 19-year-old male with significant past medical history of seizure disorder, massive urinary bladder stone and asthma presented to ED by EMS after having witnessed seizure. The history was obtained by interviewing EMS and patient. The seizure was witnessed by patient's mother, who grabbed him before falling on ground. The patient did not hit his head or any part of body to the ground. The patient admitted pain in lower abdomen 8/10 in intensity, and reported that he is having to strain during urination, dysuria, but denied any burning micturition. He denied any headache, lightheadedness, chest pain, SOB, any changes in bowel habit or leg swelling, fever or chills, nausea or vomiting. Initial vitals were significant for blood pressure 128/80, pulse 80, RR 18, temperature 98.4, saturating 99% on 6 L NC. Labs are significant for hemoglobin 13.1, chloride 108, creatinine 1.5, phosphorus 2.2, and UA revealed WBC 32, and urine pH 8.0 with urine leukocyte esterase positive. The patient received Dilaudid 1 mg IVP x 1, tamsulosin 0.4 Mg p.o. x 1, Keppra 1.5 g IVP x 1, Dilaudid 0.5 Mg IVP x 1, and Sturgeon 5 Mg p.o. x 1. He reported improvement in his symptoms. He was also given ceftriaxone 1 g IV x 1. The patient was plan to discharge home. Patient data External records reviewed:: [facility] previous records and EMS form Clinical information provided by:: patient, EMS and parent Social determinants that could affect healthcare access:: none Patient has the following chronic illnesses:: See above How is presenting disease/condition affected by chronic disease/condition?: caused by Evaluation data The following diagnostics were reviewed and interpreted by me:: lab results Lab and/or radiology exams considered but not ordered:: None Interpretation Summary: See above Medications / Prescriptions Medications or Prescriptions considered but not ordered:: None Medication administrations:: Medication Administration History Discontinued Medications Hydrocodone Bitart/Acetaminophen (Hydrocodone/Apap 7.5/325 Tablet) 1 tab PO X1 ONE Stop: 03/22/25 00:46 Dextrose (Dextrose 50%-Water Inj 50 Ml Syringe) 50 ml IV X1 ONE Stop: 03/21/25 21:13 Last Admin: 03/21/25 23:26 Dose: Not Given Documented By: MONICA Non-Admin Reason: Other, see note Hydromorphone HCl (Hydromorphone Inj 2 Mg/Ml Vial) 1 mg IVP X1 ONE Stop: 03/21/25 21:08 Last Admin: 03/21/25 22:18 Dose: 1 mg Documented By: JENIFFER Hydromorphone HCl (Hydromorphone Inj 2 Mg/Ml Vial) 0.5 mg IVP X1 ONE Stop: 03/21/25 23:34 Last Admin: 03/21/25 23:40 Dose: 0.5 mg Documented By: MONICA Levetiracetam (Levetiracetam Inj 100 Mg/Ml Vial 5ml) 1,500 mg IVP X1 ONE Stop: 03/22/25 00:28 Potassium Phos/Sodium Phos ([facility] 1 Packet (1.5 Gm)) 1 packet PO X1 ONE Stop: 03/21/25 23:35 Last Admin: 03/22/25 00:20 Dose: 1 packet Documented By: MONICA Potassium Phos/Sodium Phos ([facility] 1 Packet (1.5 Gm)) 1 packet PO X1 ONE Stop: 03/21/25 23:37 Last Admin: 03/22/25 00:20 Dose: 1 packet Documented By: MONICA Tamsulosin HCl (Tamsulosin Hcl 0.4 Mg Capsule) 0.4 mg PO X1 ONE Stop: 03/21/25 21:19 Last Admin: 03/21/25 22:18 Dose: 0.4 mg Documented By: JENIFFER See above Consultations Consultation(s) initiated? (list below): No Diagnosis Seizure Differential Diagnosis: intractable seizure disorder, generalized seizure and epileptic seizure Most likely diagnosis given after review of the tests above:: Generalized seizure Admission Indicated Admission indicated?: not indicated Admission Request Was there a request for admission?: No Disposition Plan Disposition Plan: Discharge Discharge Attestation Discharge Attestation: The patient and all family members were given an opportunity to ask questions and understood the discharge instructions. Discharge instructions specifically effects, indications for sooner follow up or return to the emergency department, and the expected course of current diagnosis. Patient condition: Stable Discharge Plan Plan Patient Disposition: HOME (Self Care) Prescriptions/Referrals Prescriptions/Med Rec: New levetiracetam [Keppra] 500 mg tablet 500 mg PO BID Qty: 60 2RF acetaminophen 500 mg tablet 500 mg PO Q6H PRN (Reason: pain) Qty: 30 0RF tamsulosin 0.4 mg capsule 0.8 mg PO QDAY Qty: 60 0RF ciprofloxacin HCl 500 mg tablet 500 mg PO BID Qty: 13 0RF No Action dexmethylphenidate [Focalin XR] 20 MG capsule,ER biphasic 50-50 20 mg PO DAILY Qty: 0 esomeprazole magnesium [Nexium] 40 MG capsule,delayed release(DR/EC) 40 mg PO QDAY Qty: 0 beclomethasone dipropionate [Qvar] 100 PUFF/7.3 GM aerosol 2 puff Inhalation BID Qty: 0 albuterol sulfate 2.5 MG/3 ML solution for nebulization 2.5 mg HHN [id number] Qty: 0 calcium carbonate [Oyster Shell Calcium] 1 TAB tablet 1 tab PO DAILY Qty: 0 epinephrine [EpiPen 2-Lj] 0.3 MG/0.3 ML auto-injector 0.3 mg IM PRN PRN (Reason: ANAPHYLAXIS) Qty: 0 ciprofloxacin HCl [Cipro] 500 mg tablet 500 mg PO BID Qty: 14 0RF ibuprofen 800 mg tablet 800 mg PO Q8H PRN (Reason: pain) Qty: 30 0RF Referrals: Jane Loza PA-C [Primary Care Provider] - In 1 week Alex Yuan MD [Physician] - In 1 week Problem List Clinical Impression: Generalized seizure Patient/Caregiver Discharge Instructions Education Materials: ED Seizure, Recurrent (Adult) Additional Instructions: You were treated for generalized seizure disorder. You have been discharged by Dr. Cotto with following recommendations: Please follow-up with your PCP within 1 week of discharge Please follow-up with neurologist Dr Yuan within 1 week of discharge. Please call her office to make an appointment. You have been started on: - Keppra 500 Mg twice daily - Ciprofloxacin 500 Mg twice daily for 7 days - Tamsulosin 0.8 mg daily - Tylenol 500 Mg every 6 hourly as needed for pain Continue taking all other medicines as prescribed -Recommended to return back to emergency department if your symptoms persists or worsens Print Language: Nauruan Stand Alone Forms: Nathalie Award Info., Patient Portal Info Letter MD Attestation MD Attestation I, Dr. Su, have reviewed the history, exam, and assessment of the patient. I have evaluated the patient independently and agree with the plan of care documented by the resident Dr. Cotto. All diagnostic studies were reviewed and discussed. I confirm the diagnosis as documented by the resident. I was present during the Medical Decision Making for this patient. The patient?s plan of care was created between myself and the resident and consistent with our discussion of the patient?s case.
[2025-03-21 21:27] VITALS: PULSE 92; O2SAT 99
[2025-03-21 21:57] LABS: Lactate (Lactic Acid) 1.5 mMol/L (0.4-2.0)
[2025-03-21 22:03] LABS: Basophils # (Auto) 0.1 Thou/mm3 (0.0-0.2); Basophils % (Auto) 1 % (0-2.5); Eosinophils # (Auto) 0.2 Thou/mm3 (0.0-0.5); Eosinophils % (Auto) 3 % (0-10); Hematocrit 36.9 % (41.0-53.0); Hemoglobin 13.1 g/dL (13.5-16.0); Immature Granulocytes % (Auto) 0 % (0-0); Immature Granulocytes Auto 0.01 Thou/mm3 (0.00-0.00); Lymphocytes # (Auto) 2.4 Thou/mm3 (1.0-4.8); Lymphocytes % (Auto) 38 % (10-50); Mean Corpuscular HGB Conc 35.5 g/dl (31.0-37.0); Mean Corpuscular Hemoglobin 30.2 pg (25.0-35.0); Mean Corpuscular Volume 85 fL (80-100); Monocytes # (Auto) 0.4 Thou/mm3 (0.0-0.8); Monocytes % (Auto) 6 % (0-12); Neutrophils # (Auto) 3.4 Thou/mm3 (1.8-7.7); Neutrophils % (Auto) 53 % (37-80); Nucleated Red Blood Cell % 0 /100 WBC (0); Platelet Count 245 Thou/mm3 (140-440); RDW Standard Deviation 37.4 fL (35.1-43.9); Red Blood Count 4.34 Miln/mm3 (4.50-5.90); White Blood Count 6.5 Thou/mm3 (3.8-10.6)
[2025-03-21] MEDS: HYDROmorphone INJ 2 MG/ML VIAL 1 MG IVP (22:18)
[2025-03-21] MEDS: TAMSULOSIN HCL 0.4 MG CAPSULE PO (22:18)
[2025-03-21 22:20] LABS: Albumin, Serum 4.4 gm/dL (3.5-5.0); Albumin/Globulin Ratio 1.6 (1.2-2.2); Alkaline Phosphatase 73 U/L (46-116); Anion Gap 9 (7-16); Aspartate Amino Transferase 15 U/L (0-34); BUN/Creatinine Ratio 12 Ratio (12-20); Bilirubin,Total 0.5 mg/dL (0.3-1.2); Blood Urea Nitrogen 18 mg/dL (9-23); Calcium 9.1 mg/dL (8.3-10.6); Calcium (Corrected) 9.1 mg/dL (8.5-10.1); Carbon Dioxide 27.8 mMol/L (20.0-31.0); Chloride 108 mMol/L (98-107); Creatine Kinase 88 U/L (34-171); Creatinine (Component) 1.5 mg/dL (0.6-1.3); Estimated Creatinine Clearance 64.5 mL/min (>60); Globulin 2.8 gm/dL (2.3-3.5); Glucose 84 mg/dL (74-106); Osmolality,Calculated 289 (275-295); Phosphorous 2.2 mg/dL (2.4-5.1); Potassium 3.9 mMol/L (3.4-5.1); Sodium 145 mMol/L (136-145); Total Protein 7.2 gm/dL (5.7-8.2); eGFR > 60 See Note
[2025-03-21 22:29] LABS: Alanine Aminotransferase 7 U/L (10-49)
[2025-03-21] MEDS: HYDROmorphone INJ 2 MG/ML VIAL 0.5 MG IVP (23:40)
[2025-03-21 23:51] LABS: Collection Type, Urine Clean Catch
[2025-03-22] MEDS: NAPH,KPH MBDB 1 PACKET (1.5 GM) PO ×2 (00:20)
[2025-03-22 00:22] LABS: Bilirubin,Urine Negative (Negative); Blood,Urine Negative (Negative); Clarity,Urine Clear (Clear/Hazy); Color,Urine Lt-Yellow (Lt Yel-Yel); Glucose, Urine Negative (Negative); Ketones,Urine Negative (Negative); Leukocyte Esterase,Urine Positive (Negative); Nitrite,Urine Negative (Negative); Protein,Urine Trace (Neg - Trace); Urobilinogen,Urine Negative mg/dL (0.0-1.0)
[2025-03-22 00:25] VITALS: BP 149/99; PULSE 65; RESP 18; TEMP 36.5; O2SAT 99
[2025-03-22 00:27] LABS: Culture Indicated,Urine Yes; WBC,Urine 32 /hpf (0-5)
[2025-03-22 00:28] LABS: Squamous Epithelial Cell,Urine 10 /hpf (0-5)
[2025-03-22 00:29] LABS: RBC,Urine 9 /hpf (0-3)
[2025-03-22] MEDS: HYDROcodone/APAP 7.5/325 TABLET 1 TAB PO (01:33)
[2025-03-22] MEDS: CIPROFLOXACIN HCL 250 MG TABLET 500 MG PO (01:34)
[2025-03-22] MEDS: levETIRAcetam INJ 100 MG/ML VIAL 5ML 1500 MG IVP (01:35)
[2025-03-22 01:54] VITALS: BP 129/89; PULSE 73; RESP 16; TEMP 36.6; O2SAT 100
== END 2025-03-22 01:57 | disposition home or self-care (01) ==
PROVIDERS: Emergency Provider Student in an Organized Health Care Education/Training Program; PCP Physician Assistant
DX: R56.9 Unspecified convulsions (principal)
CPT/HCPCS: 36415; 80053; 81001; 82550; 83605; 83735; 84100; 85025; 87086; 96374; 96375; 96376; 99284; J1171; J1953; A9270

== ENCOUNTER 2025-03-22 21:03 | Emergency (ER) | payer MEDICAID, SELFPAY ==
[2025-03-22 21:07] VITALS: PULSE 71; RESP 16; O2SAT 98; BMI 19.5
[2025-03-22 21:12] VITALS: BP 111/81; PULSE 78; RESP 18; TEMP 36.9; O2SAT 100
--- NOTE | 2025-03-22 21:12 | EKG_ITS ---
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
--- NOTE | 2025-03-22 21:23 | PD.EDHA ---
ED Headache RME/HPI General Chief Complaint: Headache Stated Complaint: POSSIBLE SEIZURE Time Seen by Provider: 03/22/25 21:05 Arrival date/time: 03/22/25 21:03 RME / HPI RME / HPI Narrative: Dr. Su?s Main ED Evaluation: 19yo male with a history of epilepsy, Hepatitis BIBA from home presents to the ED for a chief complaint of a headache. Patient states he was using the restroom when he developed significant head pressure and his body was shaking, reporting he had 2-3 seizures [id number] after. Patient states he woke up on the floor and continued to have a significant headache. Patient states he has not been on Keppra prior to yesterday's ED visit. He denies any fever, chills, cough, chest pain or any other associated symptoms. Of note, patient also complains of chronic bladder pain , reporting he has an appointment with with Dr. Christopher this 03/26/25. Related Data Home Medications ?Medication ?Instructions ?Recorded ?Confirmed albuterol sulfate 2.5 mg/3 mL 2.5 mg HHN [id number] #0 ea 12/22/13 (0.083 %) solution for nebulization beclomethasone dipropionate 40 2 puff inhalation BID ##0 12/22/13 mcg/actuation aerosol inhaler (Qvar) calcium carbonate (Oyster Shell 1 tab PO DAILY ##0 12/22/13 Calcium) dexmethylphenidate 20 mg 20 mg PO DAILY ##0 12/22/13 capsule,extended release [id number] (Focalin XR) epinephrine 0.3 mg/0.3 mL 0.3 mg IM PRN PRN ANAPHYLAXIS #0 ea 12/22/13 injection, auto-injector (EpiPen 2-Lj) esomeprazole magnesium 40 mg 40 mg PO QDAY ##0 12/22/13 capsule,delayed release (Nexium) Previous Rx's ?Medication ?Instructions ?Recorded ciprofloxacin HCl 500 mg tablet 500 mg PO BID #14 tabs 09/13/24 (Cipro) ibuprofen 800 mg tablet 800 mg PO Q8H PRN pain #30 tabs 09/13/24 acetaminophen 500 mg tablet 500 mg PO Q6H PRN pain #30 tabs 03/22/25 ciprofloxacin HCl 500 mg tablet 500 mg PO BID #13 tabs 03/22/25 levetiracetam 500 mg tablet 500 mg PO BID #60 tabs 03/22/25 (Keppra) tamsulosin 0.4 mg capsule 0.8 mg (2 x 0.4 mg) PO QDAY #60 03/22/25 caps Allergies Allergy/AdvReac Type Severity Reaction Status Date / Time adhesive Allergy Intermediate Rash Verified 03/22/25 21:07 amphetamine Allergy Intermediate SWELLS, Verified 03/22/25 21:07 RASH dextroamphetamine Allergy Intermediate SWELLS, Verified 03/22/25 21:07 RASH Penicillins Allergy Mild RASH Verified 03/22/25 21:07 ceftriaxone Allergy Unknown Hives Verified 03/22/25 21:07 corn AdvReac Mild NAUSEA Verified 03/22/25 21:07 Review of Systems Review of Systems Systems Reviewed: All systems reviewed, normal except as documented Past Medical History Past Medical History NEUROLOGIC: Positive Seizures and Epilepsy CARDIAC: Positive Cardiac Disorders; Negative Hypercholesterolemia, Congestive Heart Failure or Hypertension RESPIRATORY: Positive Asthma and Sleep Apnea; Negative Chronic Obstructive Pulmonary Disease (COPD) GASTROINTESTINAL: Positive Hepatitis GENITOURINARY: Positive Kidney Stones; Negative Renal Disease ENDOCRINE: Negative Diabetes Mellitus Type 1 or Diabetes Mellitus Type 2 HEMATOLOGIC: Negative Sickle Cell Disease OTHER HISTORY: Negative Cancer Social History SMOKING STATUS: Current some day smoker ED Exam Narrative Physical exam: GENERAL APPEARANCE: alert and oriented x 4, well-developed, well-nourished, no acute distress VITALS: All vitals were reviewed and the pulse ox is 100% on room air, which is normal according to my interpretation. HEENT: Normocephalic, atraumatic; pupils equal, round, reactive to light; EOMI; mucous membranes pink, moist; oropharynx clear NECK: Supple LUNGS: CTABL; no wheezes, no rales, no rhonchi HEART: Regular rate, regular rhythm; normal S1, S2; no murmurs ABDOMEN: non distended; normal BS; soft, no tenderness, no guarding, no rebound; no masses, no organomegaly, no hernia BACK: no CVA tenderness EXTREMITIES: atraumatic; no edema NEUROLOGIC: awake; alert and oriented x4; cranial nerves II-XII grossly intact; no focal sensory or motor deficits PSYCHIATRIC: anxious mood and affect SKIN: warm, dry, normal color; no rashes Course Quality Measures none Orders Category Date Time Status Bedside Blood Glucose NOW Care 03/22/25 21:22 Completed Assistant Professor Of Art Q4H START 00 Care 03/22/25 22:43 Completed Continuous Pulse Oximetry NOW Care 03/22/25 22:43 Completed EKG (ED ONLY) *Do not use* NOW Care 03/22/25 21:12 Completed IV [Insert IV] NOW Care 03/22/25 22:44 Completed Seizure precautions NOW Care 03/22/25 22:42 Completed EKG (ED Only) Stat Exams 03/22/25 21:12 Draft EKG (ED Only) Urgent Exams 03/22/25 21:12 Stop Req CBC Stat Lab 03/22/25 21:20 Completed CK [Creatine Kinase] Stat Lab 03/22/25 21:20 Completed CMP [Comprehensive Metabolic Panel] Stat Lab 03/22/25 21:20 Completed Lactate (Lactic Acid) Stat Lab 03/22/25 21:20 Ordered DiphenhydrAMINE INJ [Benadryl Inj] Med 03/22/25 22:45 Discontinued 12.5 mg IVP X1 ONE Ketorolac Inj [Toradol Inj] Med 03/22/25 22:45 Discontinued 15 mg IVP X1 ONE LORazepam [Ativan Inj] Med 03/22/25 22:44 Discontinued 0.5 mg IVP X1 ONE Metoclopramide Inj [Reglan Inj] Med 03/22/25 22:45 Discontinued 10 mg IVP X1 ONE Vital Signs Vital signs: Vital Signs Temperature 98.4 F 03/22/25 21:12 Pulse Rate 78 03/22/25 21:12 Respiratory Rate 18 03/22/25 21:12 Blood Pressure 111/81 03/22/25 21:12 Pulse Oximetry (%) 100 03/22/25 21:12 Oxygen Delivery Method Room Air 03/22/25 21:12 Headache MDM Narrative MDM Narrative:: Scribe Attestation: 03/22/25 Kimberly Meredith am scribing for and in the presence of Dr. Su. 2315: Notified by the nurse that the patient refused bloodwork. We will give the patient some time to see if he will be agreeable to doing bloodwork. 0016: I was informed by the nurse that the patient is requesting to sign out AMA. I went and spoke with the patient at bedside and informed him of the risks of leaving AMA. Patient verbalized understanding and is signing out against medical advice. Patient data External records reviewed:: [facility] previous records (Per chart review, patient was seen here yesterday for a seizure.) Clinical information provided by:: patient Social determinants that could affect healthcare access:: none Patient has the following chronic illnesses:: epilepsy, Hepatitis How is presenting disease/condition affected by chronic disease/condition?: caused by Evaluation data The following diagnostics were reviewed and interpreted by me:: lab results and EKG tracing(s) Lab and/or radiology exams considered but not ordered:: none Interpretation Summary: CBC is normal, CMP is normal. EKG done at 2112, NSR, rate of 65, normal axis, no ectopy, no acute ischemia, according to my interpretation. Medications / Prescriptions Medications or Prescriptions considered but not ordered:: none Medication administrations:: Medication Administration History Discontinued Medications Diphenhydramine HCl (Diphenhydramine Inj 50 Mg/Ml Vial) 12.5 mg IVP X1 ONE Stop: 03/22/25 22:46 Last Admin: 03/22/25 22:51 Dose: 12.5 mg Documented By: CVL Ketorolac Tromethamine (Ketorolac Inj 30 Mg/Ml Vial) 15 mg IVP X1 ONE Stop: 03/22/25 22:46 Last Admin: 03/22/25 22:53 Dose: 15 mg Documented By: CVL Lorazepam (Lorazepam 2 Mg/Ml Vial) 0.5 mg IVP X1 ONE Stop: 03/22/25 22:45 Last Admin: 03/22/25 22:52 Dose: 0.5 mg Documented By: CVL Metoclopramide HCl (Metoclopramide Inj 5 Mg/Ml Vial 2 Ml) 10 mg IVP X1 ONE; Protocol Stop: 03/22/25 22:46 Last Admin: 03/22/25 22:51 Dose: 10 mg Documented By: CVL see above Consultations Consultation(s) initiated? (list below): No Diagnosis Differential diagnosis headache: other (post seizure headache, intraparenchymal bleed, skull fracture, subdural vs epidural hematoma) Most likely diagnosis given after review of the tests above:: see clinical impression below Admission Indicated Admission indicated?: not indicated Admission Request Was there a request for admission?: No Disposition Plan Disposition Plan: other (specify) (Signed out AMA.) Discharge Plan Plan Patient Disposition: Left Against Medical Advice Discharge Disposition comment: AGAINST MEDICAL ADVICE Patient condition on transfer: Stable Prescriptions/Referrals Prescriptions/Med Rec: No Action dexmethylphenidate [Focalin XR] 20 MG capsule,ER biphasic 50-50 20 mg PO DAILY Qty: 0 esomeprazole magnesium [Nexium] 40 MG capsule,delayed release(DR/EC) 40 mg PO QDAY Qty: 0 beclomethasone dipropionate [Qvar] 100 PUFF/7.3 GM aerosol 2 puff Inhalation BID Qty: 0 albuterol sulfate 2.5 MG/3 ML solution for nebulization 2.5 mg HHN [id number] Qty: 0 calcium carbonate [Oyster Shell Calcium] 1 TAB tablet 1 tab PO DAILY Qty: 0 epinephrine [EpiPen 2-Lj] 0.3 MG/0.3 ML auto-injector 0.3 mg IM PRN PRN (Reason: ANAPHYLAXIS) Qty: 0 ciprofloxacin HCl [Cipro] 500 mg tablet 500 mg PO BID Qty: 14 0RF ibuprofen 800 mg tablet 800 mg PO Q8H PRN (Reason: pain) Qty: 30 0RF levetiracetam [Keppra] 500 mg tablet 500 mg PO BID Qty: 60 2RF acetaminophen 500 mg tablet 500 mg PO Q6H PRN (Reason: pain) Qty: 30 0RF tamsulosin 0.4 mg capsule 0.8 mg PO QDAY Qty: 60 0RF ciprofloxacin HCl 500 mg tablet 500 mg PO BID Qty: 13 0RF Referrals: Alex Johnson MD [Primary Care Provider] - In 1 week Problem List Clinical Impression: Seizure, Headache Patient/Caregiver Discharge Instructions Discharge Activity: activity as tolerated Education Materials: Self-Care for Headaches, ED Seizure, Recurrent (Adult) Additional Instructions: Just because you are leaving the hospital AGAINST MEDICAL ADVICE does not mean you can come back anytime. Please return to the ER when you are ready to complete the workup. Also return to the ER if you have any worsening or any further medical problems. You should follow-up with your primary care doctor within the next several days. Print Language: [place]
[2025-03-22] MEDS: DiphenhydrAMINE INJ 50 MG/ML VIAL 12.5 MG IVP (22:51)
[2025-03-22] MEDS: METOCLOPRAMIDE INJ 5 MG/ML VIAL 2 ML 10 MG IVP (22:51)
[2025-03-22] MEDS: LORazepam 2 MG/ML VIAL 0.5 MG IVP (22:52)
[2025-03-22] MEDS: KETOROLAC INJ 30 MG/ML VIAL 15 MG IVP (22:53)
[2025-03-22 23:05] LABS: Basophils # (Auto) 0.1 Thou/mm3 (0.0-0.2); Basophils % (Auto) 2 % (0-2.5); Eosinophils # (Auto) 0.2 Thou/mm3 (0.0-0.5); Eosinophils % (Auto) 3 % (0-10); Hematocrit 41.2 % (41.0-53.0); Hemoglobin 14.7 g/dL (13.5-16.0); Immature Granulocytes % (Auto) 0 % (0-0); Lymphocytes # (Auto) 2.6 Thou/mm3 (1.0-4.8); Lymphocytes % (Auto) 50 % (10-50); Mean Corpuscular HGB Conc 35.7 g/dl (31.0-37.0); Mean Corpuscular Hemoglobin 30.3 pg (25.0-35.0); Mean Corpuscular Volume 85 fL (80-100); Monocytes # (Auto) 0.3 Thou/mm3 (0.0-0.8); Monocytes % (Auto) 6 % (0-12); Neutrophils # (Auto) 2.1 Thou/mm3 (1.8-7.7); Neutrophils % (Auto) 39 % (37-80); Nucleated Red Blood Cell % 0 /100 WBC (0); Platelet Count 228 Thou/mm3 (140-440); RDW Standard Deviation 37.7 fL (35.1-43.9); Red Blood Count 4.85 Miln/mm3 (4.50-5.90); White Blood Count 5.3 Thou/mm3 (3.8-10.6)
[2025-03-22 23:36] LABS: Alanine Aminotransferase 8 U/L (10-49); Albumin, Serum 4.6 gm/dL (3.5-5.0); Albumin/Globulin Ratio 1.4 (1.2-2.2); Alkaline Phosphatase 66 U/L (46-116); Anion Gap 11 (7-16); Aspartate Amino Transferase 19 U/L (0-34); BUN/Creatinine Ratio 10 Ratio (12-20); Bilirubin,Total 0.7 mg/dL (0.3-1.2); Blood Urea Nitrogen 15 mg/dL (9-23); Calcium 9.6 mg/dL (8.3-10.6); Calcium (Corrected) 9.6 mg/dL (8.5-10.1); Carbon Dioxide 20.6 mMol/L (20.0-31.0); Chloride 110 mMol/L (98-107); Creatine Kinase 94 U/L (34-171); Creatinine (Component) 1.5 mg/dL (0.6-1.3); Estimated Creatinine Clearance 64.5 mL/min (>60); Globulin 3.2 gm/dL (2.3-3.5); Glucose 93 mg/dL (74-106); Osmolality,Calculated 283 (275-295); Potassium 4.4 mMol/L (3.4-5.1); Sodium 142 mMol/L (136-145); Total Protein 7.8 gm/dL (5.7-8.2); eGFR > 60 See Note
--- NOTE | 2025-03-23 00:21 | PC.NURSE ---
PATIENT REFUSED TREATMENT AND WANTED TO SIGN AMA. DR GUTIERREZ EXPLAINED THE RISK OF LEAVING AMA. PATIENT AND MOTHER BOTH UNDERSTOOD AND LEFT AMA.
== END 2025-03-23 00:23 | disposition left against medical advice (07) ==
PROVIDERS: Emergency Provider Emergency Medicine; PCP Family Medicine
DX: G40.909 Epilepsy, unspecified, not intractable, without status epilepticus (principal); R51.9 Headache, unspecified
CPT/HCPCS: 36415; 80053; 82550; 83605; 85025; 93005; 96374; 96375; 99284; J1200; J1885; J2060; J2765